=== PATIENT | female | born 1985 | race Two or more races ===

== ENCOUNTER 2023-05-22 12:53 | Emergency (ER) | payer OTHER ==
[~2023-05-22] VITALS: Ht 162.6 cm; Wt 48.5 kg
== END 2023-05-22 17:58 | disposition home or self-care (01) ==
LOC: ER 12:53
DX: U07.1 COVID-19 (principal); J11.1 Influenza due to unidentified influenza virus with other respiratory manifestations

== ENCOUNTER → 2023-10-03 | Emergency (ER) | payer OTHER ==
[~2023-10-03] VITALS: Ht 162.6 cm; Wt 48.1 kg
== END | disposition home or self-care (01) ==
LOC: ER 13:12
DX: T78.49XA Other allergy, initial encounter (principal)